=== PATIENT | male | born 1960 | race Caucasian/White ===

== ENCOUNTER 2023-11-23 08:50 | Emergency (ER) | payer SELFPAY ==
[~2023-11-23] VITALS: Ht 180.3 cm; Wt 77.3 kg
[2023-11-23 08:54] VITALS: TEMP 98.3
[2023-11-23] MEDS ORDERED: PERCOCET 325 MG1 TA2 PO (10:10)
[2023-11-23 10:20] VITALS: BP 145/85; PULSE 70
== END 2023-11-23 10:20 | disposition home or self-care (01) ==
LOC: COL.ER 08:50
DX: M54.50 Low back pain, unspecified (principal); M25.551 Pain in right hip; F17.210 Nicotine dependence, cigarettes, uncomplicated; F17.220 Nicotine dependence, chewing tobacco, uncomplicated